=== PATIENT | male | born 1950 | race Caucasian/White ===

== ENCOUNTER → 2023-06-10 08:51 | Outpatient (REF) | payer MEDICARE, SELFPAY | LOC: RCS 08:51 | PROVIDERS: ATTENDING PHYSICIAN Internal Medicine Cardiovascular Disease; FAMILY PHYSICIAN Family Medicine | DX: R94.31 Abnormal electrocardiogram [ECG] [EKG] (principal); I10 Essential (primary) hypertension; E78.00 Pure hypercholesterolemia, unspecified; R00.2 Palpitations | CPT/HCPCS: 93017; 93350 ==

== ENCOUNTER → 2023-06-23 09:16 | Outpatient (REF) | payer MEDICARE, SELFPAY | LOC: DHCBS HW 09:16 | PROVIDERS: ATTENDING PHYSICIAN Internal Medicine Cardiovascular Disease; FAMILY PHYSICIAN Family Medicine | DX: I10 Essential (primary) hypertension (principal); Z86.73 Personal history of transient ischemic attack (TIA), and cerebral infarction without residual deficits; I34.0 Nonrheumatic mitral (valve) insufficiency | CPT/HCPCS: 93306 ==

== ENCOUNTER 2023-08-01 18:20 | Inpatient (IN) | payer MEDICARE, SELFPAY ==
[2023-08-01 14:00] VITALS: BP 163/95
[2023-08-01 14:47] LABS: % Basophils 0.4 % (0-2); % Eosinophils 0.8 % (0-6); % Immature Granulocytes 0.3 % (0-0.5); % Lymphocytes 3.2 % (20.5-51.1); % Monocytes 8.1 % (1.7-9.3); % Neutrophils 87.2 % (42.2-75.2); Absolute Basophils 0.1 10^3/uL (0-0.2); Absolute Eosinophils 0.1 10^3/uL (0-0.7); Absolute Immature Granulocytes 0.1 10^3/uL (0-0.05); Absolute Lymphocytes 0.5 10^3/uL (1.2-3.4); Absolute Monocytes 1.3 10^3/uL (0.1-0.6); Absolute Neutrophils 13.8 10^3/uL (1.4-6.5); Hematocrit 43.2 % (39.0-52.0); Hemoglobin 15.7 g/dL (13.0-18.0); Mean Corp Hgb Conc. 36.3 g/dL (33.0-37.0); Mean Corpuscular Hgb 34.7 pg (27.0-31.0); Mean Corpuscular Volume 95.4 fL (80.0-94.0); Mean Platelet Volume 9.3 fL (7.4-10.4); Nucleated Red Blood Cells % 0 % (-); Platelet Count 243 10^3/uL (130-400); Red Blood Cell Count 4.53 10^6/uL (4.70-6.10); Red Cell Dist. Width 11.6 % (11.5-14.5); White Blood Cell Count 15.9 10^3/uL (4.8-10.8)
[2023-08-01 15:02] LABS: ALT (SGPT) 24 U/L (0-50); AST (SGOT) 33 U/L (17-59); Albumin 4.4 g/dl (3.5-5.0); Alkaline Phosphatase 69 U/L (38-126); Blood Urea Nitrogen 17 mg/dl (9-20); Carbon Dioxide 29 mmol/L (22-30); Chloride 97 mmol/L (98-107); Glucose 118 mg/dl (70-99); Potassium 3.9 mmol/L (3.5-5.1); Sodium 137 mmol/L (135-145); Total Bilirubin 1.2 mg/dl (0.2-1.3); Total Protein 7.4 g/dl (6.3-8.2); eGFR > 60.00
--- NOTE | 2023-08-01 15:09 | ED.GENMED ---
History of Present Illness
General
Chief Complaint: Abdominal Pain
Source: patient
Exam Limitations: none
Time Seen by Provider: 08/01/23 15:03
Nursing documentation reviewed up to this point in time: agreed with
Travel History
Have you had any contact with someone who has COVID-19?: No
Do you have any symptoms of coronavirus? Fever > 100 degrees, chills, cough, shortness of breath, sore throat, loss of taste or smell, muscle aches, or headache?: No
History of Present Illness
History of Present Illness:
73 y/o M with h/o HTN, HLD, diverticulitis, prostate CA
here with abd pain that started yesterday morning. he had the pain that seemed to come and go, mid abdomen; he took 2 doculax at 1915 lat night and then he did have liquid stool 2100 vbut not much. today he feels more bloated and distended and
tok more doculax and now is nauseated and uncomfortable
pt drinks alcohol, wine, a few nights a week
no h/o SBO, no h/o pancreatitis
pt says he has not had fever, urinary symtpoms, vomiting, bloody or black stool
Past History
Past History
ED Past Medical History: HTN, Hypercholesterolemia, Other (diverticulitis), Other (prostate CA) and Other (TIA)
Social History
Alcohol: Occasional
Personal:
Living: with family
Employment: Employed
Review of Systems
Review of Systems
Allergies reviewed?: Yes
All Other Systems: Not applicable
Phy Exam
Physical Exam
Physical Exam:
GENERAL: Alert , in no apparent distress
EYE: pupils equal and reactive
NECK: Supple
ENT: o/p clr, mmm.
CARDIAC: Regular rate and rhythm
LUNGS: Clear breath sounds bilaterally, no acute respiratory distress, no wheezes/rales/rhonchi
ABDOMEN: Distended, minimally tender upper abdomen, hyperactive high-pitched bowel sounds, no r/g, no cvat,
NEUROLOGICAL: Alert and oriented, no focal neuro deficits
SKIN: Warm and dry, skin intact.
MUSCULOSKELETAL: No edema, well perfused. neg pradip's sign
PSYCH: Normal and appropriate interaction.
Course
Orders/Labs/Results
Orders:
Orders
08/01/23 14:15
CR Obstruct Series W/pa Chest Urgent
Reason For Exam: constipation
08/01/23 14:35
Amylase Urgent
Comment: ADD
Complete Blood Count/With Diff Urgent
Comprehensive Metabolic Panel Urgent
Glycohemoglobin (HgbA1c) Urgent
LDH Urgent
Comment: ADD
Lipase Urgent
Triglycerides Urgent
Comment: ADD ON
08/01/23 Dinner
NPO
Allow oral meds: No
Allow clear liquids: No
NPO with Ice Chips: No
08/01/23 15:26
CT Abd/pel W Iv And Oral Contr Urgent
Comment:
Reason For Exam: constiation, distension, nausea; elevated lipase
HYDROmorphone [Dilaudid] 0.5 mg IV NOW STA
Iohexol [Omnipaque] See Protocol PO NOW STA
Lactated Ringers [Lr] 1,000 ml IV BOLUS
Ondansetron Injectable [Zofran] 4 mg IV NOW STA
08/01/23 15:27
Add On- LAB Urgent
Tests Added?: ldh, amylase,
08/01/23 17:01
Admit/Transfer Patient As Directed
Co-Sign Provider:
Level of Care: Inpatient admission
Assign to:: Medical/Surgical
Physician / Group: stacia neil
Diagnosis: acute pancreatitis, poss ileus, htn urgency
Reason for Hospitalization: acute pancreatitis, poss ileus, htn urgency
Expected length of stay greater than two midnights?: Yes
ELOS- Estimated Length of Stay in days: 3
I certify the patient meets the requirements for IP care: Yes
Code Status As Directed
Resuscitation Status: Full Code
08/01/23 17:07
Pantoprazole [Protonix IV] 40 mg IV NOW STA
08/01/23 17:10
GASTROINTESTINAL CONSULT Routine
Consulting Provider: Justin Vaughan
Was physician already notified: Yes
Reason for consult: acute pancreatitis poss ileus
08/01/23 17:50
Add On- LAB Routine
Tests Added?: Hbg a1c, Triglyceride
08/01/23 18:30
0.9% Sodium Chloride 1000 ml [Nss] 1,000 ml IV 125 mls/hr
Bisacodyl [Dulcolax] 10 mg RECTAL [id number] PRN
Docusate W/Senna [Senokot-S] 1 tablet PO BIDPRN PRN
HYDROmorphone [Dilaudid] 0.5 mg IV Q4HPRN PRN
HYDROmorphone [Dilaudid] 1 mg IV Q3HPRN PRN
HydrALAZINE [Apresoline] 10 mg IV Q6HPRN PRN
Ondansetron Injectable [Zofran] 4 mg IV Q6HPRN PRN
Polyethylene Glycol Powder [Miralax] 17 grams PO DAILYPRN PRN
08/01/23 18:30
Activity As Directed
Activity Level: As Tolerated
Intake/ Output As Directed
Frequency: Per unit guidelines
Vital Signs As Directed
Frequency: Per unit guidelines
Weight As Directed
Frequency: Daily
DX Deep Vein Thrombosis Video Routine
08/01/23 21:00
Enoxaparin Sodium [Lovenox] 40 mg SC QPM
08/02/23 06:00
Cardiovascular Evaluation IN AM
Complete Blood Count/With Diff IN AM
Comprehensive Metabolic Panel IN AM
Lipase IN AM
08/02/23 08:00
Pantoprazole [Protonix IV] 40 mg IV DAILY
08/03/23 06:00
Complete Blood Count/With Diff IN AM
Comprehensive Metabolic Panel IN AM
Lipase IN AM
08/04/23 06:00
Complete Blood Count/With Diff IN AM
Comprehensive Metabolic Panel IN AM
Abnormal Lab Results
08/01/23
14:35
WBC 15.9 H 10^3/uL
(4.8-10.8)
RBC 4.53 L 10^6/uL
(4.70-6.10)
MCV 95.4 H fL
(80.0-94.0)
MCH 34.7 H pg
(27.0-31.0)
Abs Immat Gran (auto) 0.1 H 10^3/uL
(0-0.05)
Absolute Neuts (auto) 13.8 H 10^3/uL
(1.4-6.5)
Absolute Lymphs (auto) 0.5 L 10^3/uL
(1.2-3.4)
Absolute Monos (auto) 1.3 H 10^3/uL
(0.1-0.6)
Neutrophils % 87.2 H %
(42.2-75.2)
Lymphocytes % 3.2 L %
(20.5-51.1)
Chloride 97 L mmol/L
(98-107)
Glucose 118 H mg/dl
(70-99)
Amylase 964 H* U/L
(30-110)
Lipase > 4000 H* U/L
(23-300)
08/01/23 14:35
08/01/23 14:35
Vital Signs
Initial and Last Documented VS:
Initial Vital Signs
Temp Pulse Resp BP Pulse Ox
99.2 F 97 20 163/95 100
08/01/23 14:00 08/01/23 14:00 08/01/23 14:00 08/01/23 14:00 08/01/23 14:00
Last Documented Vital Signs
Temp Pulse Resp BP Pulse Ox
98.6 F 82 18 176/93 96
08/01/23 18:29 08/01/23 18:29 08/01/23 18:29 08/01/23 18:29 08/01/23 18:29
MDM/Problems Addressed
MDM/Problems Addressed:
73 y/o M with abd pain, nauesa, constipation feeling, not relieved with doculax; able to pass some gas but with bowel distention; mild tenderness and distension on exam; wbc 15, lipase >4000, normal LFTs,
pending CT but xray suspicious for ileus; no history of pancreatitis in the past
h/o alcohol use weekly, a few nights aweek, no h/o alcoholism;
Requires hospitalization, IV fluids, pain meds
08/01/2023 2109 PM
I noticed the patient's CT result was back after the patient was admitted and the hospitalist had placed the orders showing interstitial edematous pancreatitis and also suspicious findings of choledocholithiasis. I did notify GI attending
tamar who is aware, GI was already formally consulted
He said that the patient will likely need ERCP.
*Critical Care Note
Total Time (30-74mins, 75-104mins- exclusive of procedures): Not Applicable
ED Attending Note
-
Portions of this chart may have been created with voice recognition software.� Occasional wrong word or��sound alike� substitutions may have occurred due to the inherent limitations of voice recognition software.
Discharge Plan
Departure
Patient Disposition: Admit
Date of Disposition: 08/01/23
Time of Disposition: 16:32
Admit to: Med/Surg
Presentation/result/management discussed w/ accepting MD/DO: Hospitalist
Covid-19: Not Applicable
Discharge Problem:
Acute pancreatitis, Adynamic ileus
Interventions
Interventions:
*Risk Screen - Suicide Last Done: 08/01/23 15:13
*General Assessment Last Done: 08/01/23 15:14
*Neglect/Abuse Screening Last Done: 08/01/23 15:13
ED- Fall Risk Assessment Last Done: 08/01/23 18:20
*ED COVID-19 Vaccine History Last Done: 08/01/23 15:14
*Nursing Disposition Last Done: 08/01/23 18:20
DK-Aumhty-Wchzvzbhil Assessment Last Done: 08/01/23 15:14
Discharge Date and Time
Discharge Date/Time: 08/01/23 18:29
[2023-08-01 15:16] LABS: Lipase > 4000 U/L (23-300)
[2023-08-01 15:23] VITALS: BP 151/86
[2023-08-01] MEDS: DILAUDID 0.5 MG IV ×3 (15:34→23:44)
[2023-08-01] MEDS: OMNIPAQUE 50 ML PO (15:34)
[2023-08-01] MEDS: ZOFRAN 4 MG IV (15:34)
[2023-08-01] MEDS: LR 1000 IV (15:34)
[2023-08-01 15:45] LABS: Amylase 964 U/L (30-110); LDH 203 U/L (120-246)
[2023-08-01 16:34] VITALS: BP 163/108
--- NOTE | 2023-08-01 16:42 | HPS.HSE ---
Family Physician
-
Family Physician: Carlos King
Chief Complaint
-
Abdominal pain, nausea
History of Present Illness
73-year-old male complaining of mid abdominal pain that started yesterday morning with feeling of constipation, nausea. He reports taking 2 Dulcolax at 1915 last night followed by liquid stool at 2100. He reported feeling more distended and
bloated this morning and took more Dulcolax and now feels nauseated. He states he has a bowel movement daily with last bowel movement formed Wednesday then yesterday following do collect liquid. He reports he drinks white wine 1 glass twice a week.
Per biopsies noted to have acute pancreatitis and possible ileus per obstruction series in the ER. Patient denies weight loss, fever, chills, vomiting, diarrhea chest pain, palpitations, shortness of breath, cough, urinary symptoms
He has past medical history prostate cancer status post prostatectomy 1998, headaches, TIA, HTN, HLD, ex-smoker, diverticulitis, melanoma.
Medical History
Past Medical History
Past Medical History: Reports Other
Additional Past Medical History:
prostate cancer status post prostatectomy 1998
headaches
TIA
HTN
HLD,
ex-smoker
diverticulitis
melanoma.
Past Surgical History: Reports Other
Additional Past Surgical History:
Prostatectomy status post prostate cancer 1998
Right bicep tendon repair
Right inguinal hernia repair
Social History
Tobacco: Former Smoker
Alcohol: Other (Drinks 1 glass wine 2 days a week)
Drug: None
Personal:
Living: With Family ()
Employment: Retired
Family History
Family History: Other (Mother Alzheimer's father cardiac disease)
Allergies / Home Medications
Allergies reflects when Allergies were last updated in [facility].
Home Medications with original date entered in [facility]
Allergy/Medication List:
Allergies
Allergy/AdvReac Type Severity Reaction Status Date / Time
adhesive tape [Adhesive Tape] Allergy Rash Verified 08/01/23 14:00
Home Medications
amlodipine 5 mg tablet 5 mg PO DAILY 08/01/23
clopidogrel 75 mg tablet 75 mg PO HS 08/01/23
levothyroxine 75 mcg tablet 75 mcg PO DAILY 08/01/23
lisinopril 20 mg-hydrochlorothiazide 25 mg tablet 1 tab PO DAILY 08/01/23
metoprolol succinate 50 mg tablet,extended release 24 hr 50 mg PO HS 08/01/23
rosuvastatin 20 mg tablet 20 mg PO HS 08/01/23
Review of Systems
-
History Source: Patient and Family ()
A 12 point ROS was completed and negative except as noted: Yes
Constitutional: Denies Fever, Weight Loss or Chills
EENT: Denies Sore Throat or Runny Nose
Respiratory: Denies Cough or Trouble Breathing
Cardiac: Denies Chest Pain, Diaphoresis, Palpitations or Syncope
Abdomen/GI: Reports Abdominal Pain and Nausea; Denies Vomiting, Diarrhea, Constipated, Bloody Stools or Black Stools
: Denies Dysuria, Frequency, Flank Pain, Incontinence, Difficulty Voiding or Urgency
Musculoskeletal: Denies Joint Pain or Edema
Skin: Denies Itching or Rash
Neurological: Denies Dizzy, Headache or Weakness
Endocrine: Reports No Symptoms
Hematologic/Lymphatic: Reports No Symptoms
Psych: Reports Calm
Physical Exam
Vital Signs
Vital Signs
Temp Pulse Resp BP Pulse Ox
99.2 F 71 16 163/108 97
08/01/23 14:00 08/01/23 16:34 08/01/23 16:34 08/01/23 16:34 08/01/23 16:34
Physical Exam
General: Conversant and Pain; No Fever or Chills
HEENT: NormoCephalic, Anicteric, Moist mucous membranes, PERRLA, [place] Conjunctivae and No Ptosis
Respiratory: Clear; No Wheezes, Rales or Rhonchi
Cardiac: S1/S2 and Regular Rhythm; No Murmur, Rub, Gallop or Peripheral Edema
Breast: Deferred by me
GI: Soft, Normal Bowel Sounds, Distended (Diffuse tympany) and No Hepatosplenomegaly
Rectal: Deferred by Provider
Genito-urinary: Deferred by me
Musculoskeletal: No Clubbing, No Cyanosis and No Edema
Skin: Warm and Dry; No Rash or Jaundice
Neuro: AO x 3, No Motor Deficits, Nonfocal/grossly intact, Cranial Nerves Intact and No Sensory Deficits; No Slurred Speech, Facial Droop or Tremors
Psych: Calm
Laboratory Results
-
08/01/23 14:35
08/01/23 14:35
Laboratory Results
Total Bilirubin 1.2 mg/dl (0.2-1.3) 08/01/23 14:35
AST 33 U/L (17-59) 08/01/23 14:35
ALT 24 U/L (0-50) 08/01/23 14:35
Alkaline Phosphatase 69 U/L (38-126) 08/01/23 14:35
Lipase > 4000 U/L (23-300) H* 08/01/23 14:35
Data Reviewed
-
Diagnostic Radiology: Report Reviewed by me
Lab Data: Labs Reviewed by me
Impression/Plan
-
Impression/plan:
Admit to [facility]
#Acute pancreatitis concern for additional ileus
WBC 15.9 with left shift, 99.2 F, HR 71, 163/108
Amylase > 964, lipase> 4000 , L LFT's
-Drinks 1 glass of white wine 2 days a week(prior history of increased alcohol use)
-Npo
-Iv NSS
-Iv PPI
-IV Zofran
-IV Dilaudid as needed
-Consult GI
-Check CT abdomen pelvis
Obstruction series:
1. Mild air distention small loops of bowel throughout the mid abdomen and transverse colon could be secondary to adynamic ileus
2. No colonic obstruction
3. Large number surgical clips inferior pelvis consistent with previous prostatectomy and lymphadenectomy
4. 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
#Htn urgency
hold lisinopril/HCTZ, metoprolol succinate, amlodipine 5 mg daily
-IV hydralazine 10 mg every 6 hours as needed SBP>165
# TIA hx
Hold current Plavix 75 mg daily, Crestor 20 mg at bedtime
#Hypothyroidism
-Hold current levothyroxine 75 mcg daily
#HLD
-Lipid profile
Hold Crestor 20 mg at bedtime
#Prostate cancer status post prostatectomy 1998
Other PMH:
ex-smoker
Diverticulitis hx
Melanoma hx skin
DVT prophylaxis
Subcu Lovenox
Full code
[2023-08-01] MEDS: PROTONIX IV 40 MG IV (17:24)
[2023-08-01 17:27] VITALS: BP 139/80
--- NOTE | 2023-08-01 17:45 | W.PN.UPDATE ---
Update Note
Progress Note Update
I saw and examined the patient.
The CLOTH SHRINKING MACHINE OPERATOR's note was reviewed and I agree with the note.
Patient is a 79-year-old male with past medical history of essential hypertension, hypothyroidism, hyperlipidemia, episodic alcohol use, history of transient ischemic attack, mild MR, history of obstructive sleep apnea, history of prostate cancer
status open resection, lumbar radiculopathy history of foot drop came to ER with new onset of abdominal pain and nausea. Patient was feeling constipated for last 2 3 days and had a dose of Dulcolax with which patient had some bowel movement. In
the morning patient noted to having new bloating and abdominal discomfort generalized allover with no radiation. Patient noted to having abdominal distention, not able to pass any gas. Patient with history of hernia surgery although no history of
bowel obstructions. Denies history of pancreatitis. Patient drinks 1 to 2 glass of wine 1-2 times a week
HEENT: No pallor, cyanosis, or jaundice. Throat clear.
NECK: Supple. No JVD.
RESPIRATORY: Lungs clear to auscultation.
CVS: S1, S2 normal. RRR. No murmur, rub or gallop.
ABDOMEN: Soft, mild diffuse tenderness, minimal distention, decreased bowel
EXTREMITIES: No peripheral cyanosis or edema.
MEAT BLENDER: AOx3. No focal deficits.
Acute pancreatitis
-New onset abdominal pain nausea.
-Lipase elevated greater than 4000, amylase > 964
-CT abdomen pelvis pending
-Advised alcohol abstinence
-Check A1c/triglyceride/Abdominal ultrasound
-Maintain n.p.o./IV fluid/pain medication
-GI involved for further evaluation
Suspecting ileus
-Abdominal x-ray showing dilated bowel loops
-CT abdomen pelvis result pending, rule out obstruction
-Patient will be n.p.o. nonetheless
-Possible NG tube placement for gastric decompression if have extensive nausea and vomiting
Hypertensive urgency
-Maintain on as needed hydralazine for systolic pressure > 160
DVT PPX -scd
Full code
[2023-08-01 18:23] LABS: Triglycerides 77 mg/dl (10-149)
[2023-08-01 18:29] VITALS: BP 176/93
[2023-08-01 19:00] VITALS: BMI 24.0
--- NOTE | 2023-08-01 19:24 | PTCARENOTE ---
pt arrived to room 1836 with . 10 pain. bruise to Right abdomen. NPO. bed low call wilson in reach
[2023-08-01] MEDS: NSS 1000 IV (19:37)
[2023-08-01] MEDS: LOVENOX 40 MG SC (20:31)
[2023-08-01 23:00] VITALS: BP 162/86
[2023-08-02] MEDS: NSS 1000 IV ×2 (03:05→12:10)
[2023-08-02] MEDS: DILAUDID 0.5 MG IV ×4 (04:53→22:07)
[2023-08-02 06:00] VITALS: BMI 23.9
[2023-08-02 06:15] LABS: % Basophils 0.5 % (0-2); % Eosinophils 1.7 % (0-6); % Immature Granulocytes 0.6 % (0-0.5); % Lymphocytes 4.9 % (20.5-51.1); % Monocytes 11.1 % (1.7-9.3); % Neutrophils 81.2 % (42.2-75.2); Absolute Basophils 0.1 10^3/uL (0-0.2); Absolute Eosinophils 0.2 10^3/uL (0-0.7); Absolute Immature Granulocytes 0.1 10^3/uL (0-0.05); Absolute Lymphocytes 0.6 10^3/uL (1.2-3.4); Absolute Monocytes 1.3 10^3/uL (0.1-0.6); Absolute Neutrophils 9.8 10^3/uL (1.4-6.5); Hematocrit 38.2 % (39.0-52.0); Hemoglobin 13.1 g/dL (13.0-18.0); Mean Corp Hgb Conc. 34.3 g/dL (33.0-37.0); Mean Corpuscular Hgb 34.4 pg (27.0-31.0); Mean Corpuscular Volume 100.3 fL (80.0-94.0); Mean Platelet Volume 10.1 fL (7.4-10.4); Nucleated Red Blood Cells % 0 % (-); Platelet Count 193 10^3/uL (130-400); Red Blood Cell Count 3.81 10^6/uL (4.70-6.10); Red Cell Dist. Width 11.6 % (11.5-14.5)
--- NOTE | 2023-08-02 06:15 | PTCARENOTE ---
PT with intermittent pain t/l the night. PRN pain medication administered as ordered. IVF infusing as ordered. Pt resting comfortably. Will continue to monitor.
--- NOTE | 2023-08-02 06:36 | CON.GI ---
Consultation
-
Date/Time Consultation Performed: 08/02/2023
Performing Provider: Praveen Vaughan MD
Reason for Consultation: abdominal pain, pancreatitis
Medical History
Chief Complaint / HPI
Chief Complaint: abdominal pain
History of Present Illness:
The patient is a 73-year-old male with past medical history as noted with abdominal pain. Symptoms started on Wednesday morning, with abdominal bloating, lower abdominal discomfort, felt constipated. He took a Dulcolax with bowel movement which was
mostly liquid, and nonbloody, and had some improvement. History his pain was more significant which prompted him to go to the emergency room. In the ER his CT scan showed changes consistent with ileus, as well as possible CBD stone with changes
consistent with pancreatitis. His lipase was greater than 4000 though LFTs were normal. He is never had pain like this before. He does drink several times during the week. He denies any fever, chills, melena. His last colonoscopy was about 5
weeks ago at [facility] with small polyp though otherwise unremarkable. He does take aspirin and Plavix for TIA, last dose on July 30.
Past Medical History
Past Medical History: Other (prostate cancer status post prostatectomy 1998 headaches TIA HTN HLD, ex-smoker diverticulitis melanoma. Mild MR, obstructive sleep apnea, lumbar radiculopathy)
Past Surgical History: Other (Prostatectomy status post prostate cancer 1998 Right bicep tendon repair Right inguinal hernia repair)
Social History
Tobacco: Former Smoker
Alcohol: Occasional
Family History
Family History: Reviewed & Not Pertinent
Allergies / Home Medications
Allergy/AdvReac Type Severity Reaction Status Date / Time
adhesive tape [Adhesive Tape] Allergy Rash Verified 08/01/23 14:00
�Medication �Instructions �Recorded
amlodipine 5 mg tablet 5 mg PO DAILY Blood Pressure 08/01/23
clopidogrel 75 mg tablet 75 mg PO HS Blood Clot 08/01/23
Prevention/Tx
levothyroxine 75 mcg tablet 75 mcg PO DAILY Thyroid 08/01/23
lisinopril 20 1 tab PO DAILY Blood Pressure 08/01/23
mg-hydrochlorothiazide 25 mg tablet
metoprolol succinate 50 mg 50 mg PO HS Blood Pressure 08/01/23
tablet,extended release 24 hr
rosuvastatin 20 mg tablet 20 mg PO HS High Cholesterol 08/01/23
Review of Systems
-
All other systems: A 12 pt ROS was Negative except as stated above in HPI
Vital Signs
Temp Pulse Resp BP Pulse Ox
98.5 F 95 18 162/86 96
08/01/23 23:00 08/01/23 23:00 08/01/23 23:00 08/01/23 23:00 08/02/23 00:30
Physical Exam
Exam
General: NAD
HEENT: MMM, anicteric, no lymphadenopathy
Heart: Regular, no murmurs
Lungs: CTA bilaterally
Abdomen: Few normal bowel sounds, moderately distended though soft, mild diffuse tenderness, no rebound or guarding, no masses, bruits or ascites
Extremeties: no edema
Skin: no rashes
Results
WBC 12.0 10^3/uL (4.8-10.8) H 08/02/23 04:38
Hgb 13.1 g/dL (13.0-18.0) 08/02/23 04:38
Hct 38.2 % (39.0-52.0) L 08/02/23 04:38
MCV 100.3 fL (80.0-94.0) H 08/02/23 04:38
Plt Count 193 10^3/uL (130-400) D 08/02/23 04:38
Absolute Neuts (auto) 9.8 10^3/uL (1.4-6.5) H 08/02/23 04:38
Sodium 137 mmol/L (135-145) 08/01/23 14:35
Potassium 3.9 mmol/L (3.5-5.1) 08/01/23 14:35
Chloride 97 mmol/L (98-107) L 08/01/23 14:35
Carbon Dioxide 29 mmol/L (22-30) 08/01/23 14:35
BUN 17 mg/dl (9-20) 08/01/23 14:35
Creatinine 0.9 mg/dL (0.7-1.3) 08/01/23 14:35
Calcium 10.0 mg/dl (8.4-10.2) 08/01/23 14:35
Total Bilirubin 1.2 mg/dl (0.2-1.3) 08/01/23 14:35
AST 33 U/L (17-59) 08/01/23 14:35
ALT 24 U/L (0-50) 08/01/23 14:35
Alkaline Phosphatase 69 U/L (38-126) 08/01/23 14:35
Amylase 964 U/L (30-110) H* 08/01/23 14:35
Lipase > 4000 U/L (23-300) H* 08/01/23 14:35
Diagnostic Image Results:
CT:
IMPRESSION:
1. ACUTE INTERSTITIAL EDEMATOUS PANCREATITIS.
2. Mild intrahepatic and extrahepatic biliary dilatation with a suspected 3.3 mm obstructing calculus in the distal common bile duct.
3. Mild diffuse hepatic steatosis.
4. Moderate-sized paraesophageal hiatal hernia.
5. Mild small bowel distention and proximal colonic distention most consistent with an ADYNAMIC ILEUS.
6. Severe diverticulosis in the sigmoid colon.
7. Previous prostatectomy and pelvic lymphadenectomy.
8. Severe discogenic degenerative disease in the lumbar spine.
Prior GI Procedures:
EGD:
Colonoscopy:
Assessment / Plan
-
1. Abdominal pain: With symptoms and exam more consistent with ileus which is noted on CT scan. Interestingly he did not have any pancreatitis type symptoms, and his LFTs are normal making biliary pancreatitis less likely despite his CT scan and
lipase. The radiopacity noted on CT scan is not clear, could represent a PD stone, and could have chronic underlying pancreatitis as he does drink significantly, could have ileus related to pancreatitis though again is that he has not had
significant biliary colic and that his LFTs are normal. At this point we will continue IV fluids, supportive care, bowel rest. Will check MRI with and without contrast with MRCP for further clarification.
-
-
Thank you for consultation and allowing me to participate in the patient's care. Please call the suction dredge dumping supervisor GI physician during the after hours with any questions or concerns.
[2023-08-02 06:55] VITALS: BP 150/86
[2023-08-02 06:59] LABS: ALT (SGPT) 16 U/L (0-50); AST (SGOT) 25 U/L (17-59); Albumin 3.2 g/dl (3.5-5.0); Alkaline Phosphatase 54 U/L (38-126); Blood Urea Nitrogen 12 mg/dl (9-20); Calcium 8.7 mg/dl (8.4-10.2); Carbon Dioxide 27 mmol/L (22-30); Chloride 99 mmol/L (98-107); Estimated Creatinine Clearance 72 ml/min; Glucose 83 mg/dl (70-99); HDL Cholesterol 67 mg/dl; LDL Cholesterol, Calculated 44 mg/dl; Lipase 561 U/L (23-300); Potassium 3.3 mmol/L (3.5-5.1); Sodium 135 mmol/L (135-145); Total Bilirubin 0.8 mg/dl (0.2-1.3); Total Cholesterol 121 mg/dl (50-199); Total Protein 5.7 g/dl (6.3-8.2); Triglyceride 53 mg/dl (10-149); Very Low Density Lipoprotein 10 mg/dl (0-30); eGFR > 60.00
[2023-08-02] MEDS: NSS (PRESERVATIVE FREE) 10 ML IV (09:10)
[2023-08-02] MEDS: PROTONIX IV 40 MG IV (09:10)
--- NOTE | 2023-08-02 09:49 | CM ---
Patient seen bedside.
IA completed.
Patient lives in a 2 story home with spouse.
No difficulties with steps.
patient drives, retired.
Patient does not use assistive devices.
Independent prior to admission.
PCP: Dr King
Pharmacy: [facility]
Plan: home no needs anticiapted.
--- NOTE | 2023-08-02 11:14 | W.PN.HOSP.TC ---
Today's Communication/Plan
-
MRI/MRCP
IVF
Meds OK
Assessment / Plan
Assessment / Plan
73-year-old female admitted because of abdominal pain and nausea.
CT scan of the abdomen and pelvis-mild air distention of the small loops of bowel throughout mid abdomen and transverse colon-likely secondary to adynamic ileus. No colonic obstruction. Large number of surgical clips inferior pelvis consistent
with previous prostatectomy and lymphadenectomy. 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
CVS: S1-S2 normal
Chest: CTA B/L
Abdomen: Soft,distended, BS sluggish
Extremities: No edema, normal pulses
[employer]: Non focal exam
# Acute pancreatitis possible ileus
Continue n.p.o.
Lipase improving
IV fluids to be continued
MRI/MRCP today
GI evaluation appreciated
# Hypokalemia-replace
#Hypomagnesemia- Replace
# Hypertensive urgency
Lisinopril/HCTZ, metoprolol, amlodipine at home
As needed hydralazine IV
Hold HCTZ
# Hypothyroidism-continue Synthroid
# Hyperlipidemia- Crestor
# History of TIA-continue Plavix and statin
# History of prostate cancer with prostatectomy in 1998
# Diverticulosis
# History of melanoma of the skin
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
# Ex-smoker
# Alcohol use reportedly twice a week-thiamine
Watch for withdrawal
# DVT prophylaxis-Lovenox
#Full CODE
D/W RN
D/W at bed side
Anticipated Discharge: Within 24 hours
Subjective/Interval History
-
Date of Service: August 02, 2023
Objective Data
-
Labs:
Laboratory Results
08/02/23
04:38
WBC 12.0 H
Hgb 13.1
Hct 38.2 L
Plt Count 193 D
Sodium 135
Potassium 3.3 L
Chloride 99
Carbon Dioxide 27
BUN 12
Creatinine 0.9
Glucose 83
Calcium 8.7
Total Bilirubin 0.8
AST 25
ALT 16
Alkaline Phosphatase 54
Vital Signs:
Vital Signs
Temp Pulse Resp BP Pulse Ox
98.1 F 88 19 150/86 94
08/02/23 06:55 08/02/23 06:55 08/02/23 06:55 08/02/23 06:55 08/02/23 06:55
I&O
08/01/23 08/02/23 08/03/23
06:59 06:59 06:59
Intake Total 1500 / 1500
Balance 1500 / 1500
[2023-08-02 12:01] LABS: Magnesium 1.4 mg/dl (1.6-2.3)
[2023-08-02] MEDS: KCL 160 MEQ IV (12:07)
[2023-08-02] MEDS: THIAMINE INJECTION 200 MG IV (12:08)
[2023-08-02 12:10] LABS: Glycohemoglobin (HgbA1c) 5.4 % (4.0-5.6)
[2023-08-02] MEDS: ZESTRIL 20 MG PO (12:20)
[2023-08-02] MEDS: NORVASC 5 MG PO (12:20)
[2023-08-02] MEDS: SYNTHROID 75 MCG PO (12:20)
[2023-08-02] MEDS: ATIVAN 0.5 MG IV (13:55)
[2023-08-02] MEDS: NSS (PRESERVATIVE FREE) 0.25 ML IV (13:56)
[2023-08-02 16:20] VITALS: BP 161/87
[2023-08-02] MEDS: LOVENOX 40 MG SC (17:32)
[2023-08-02] MEDS: DILAUDID 1 MG IV (18:22)
[2023-08-02] MEDS: TOPROL XL 50 MG PO (20:40)
[2023-08-02] MEDS: PLAVIX 75 MG PO (20:40)
[2023-08-02] MEDS: MAGNESIUM SULFATE 50 IV (20:40)
[2023-08-02] MEDS: CRESTOR 20 MG PO (20:40)
[2023-08-02 23:30] VITALS: BP 130/71
[2023-08-03] MEDS: NSS IV ×3 (01:51→13:16)
[2023-08-03] MEDS: NSS 1000 IV ×3 (01:52→20:12)
[2023-08-03] MEDS: SYNTHROID 75 MCG PO (05:53)
[2023-08-03 06:00] VITALS: BMI 22.8
[2023-08-03 06:34] LABS: % Basophils 0.8 % (0-2); % Immature Granulocytes 0.5 % (0-0.5); % Lymphocytes 6.2 % (20.5-51.1); % Monocytes 11.8 % (1.7-9.3); % Neutrophils 76.7 % (42.2-75.2); Absolute Basophils 0.1 10^3/uL (0-0.2); Absolute Eosinophils 0.4 10^3/uL (0-0.7); Absolute Immature Granulocytes 0.1 10^3/uL (0-0.05); Absolute Lymphocytes 0.6 10^3/uL (1.2-3.4); Absolute Monocytes 1.1 10^3/uL (0.1-0.6); Absolute Neutrophils 7.3 10^3/uL (1.4-6.5); Hematocrit 36.5 % (39.0-52.0); Hemoglobin 12.6 g/dL (13.0-18.0); Mean Corp Hgb Conc. 34.5 g/dL (33.0-37.0); Mean Corpuscular Hgb 34.4 pg (27.0-31.0); Mean Corpuscular Volume 99.7 fL (80.0-94.0); Mean Platelet Volume 9.9 fL (7.4-10.4); Nucleated Red Blood Cells % 0 % (-); Platelet Count 199 10^3/uL (130-400); Red Blood Cell Count 3.66 10^6/uL (4.70-6.10); Red Cell Dist. Width 11.5 % (11.5-14.5); White Blood Cell Count 9.5 10^3/uL (4.8-10.8)
[2023-08-03 07:02] LABS: ALT (SGPT) 13 U/L (0-50); AST (SGOT) 23 U/L (17-59); Alkaline Phosphatase 52 U/L (38-126); Blood Urea Nitrogen 12 mg/dl (9-20); Calcium 8.6 mg/dl (8.4-10.2); Carbon Dioxide 25 mmol/L (22-30); Chloride 104 mmol/L (98-107); Estimated Creatinine Clearance 81 ml/min; Glucose 62 mg/dl (70-99); Lipase 200 U/L (23-300); Potassium 3.8 mmol/L (3.5-5.1); Sodium 138 mmol/L (135-145); Total Bilirubin 0.7 mg/dl (0.2-1.3); Total Protein 5.5 g/dl (6.3-8.2); eGFR > 60.00
[2023-08-03 07:53] VITALS: BP 144/78
[2023-08-03] MEDS: PROTONIX IV 40 MG IV (09:03)
[2023-08-03] MEDS: NORVASC 5 MG PO (09:04)
[2023-08-03] MEDS: NSS (PRESERVATIVE FREE) 10 ML IV (09:04)
[2023-08-03] MEDS: ZESTRIL 20 MG PO (09:04)
[2023-08-03] MEDS: THIAMINE INJECTION 200 MG IV (09:06)
--- NOTE | 2023-08-03 09:23 | W.PN.GI.CBS2 ---
Today's Communication / Plan
-
clear liquids
pancreatic enzymes
Assessment / Plan
-
Pt with a hx of ileus, chronic pancreatitis with superimposed mild acute pancreatitis. Initial lipase of >4,000 now normal. Less pain. Normal LFTs. MRI done w/o choledocholithiasis confirms acute on chronic pancreatitis which clinically is
improving.
1. clear liquids
2. PPI
3. pancreatic enzymes: loose stool may be secondary to pancreatic insufficiency.
4. d/w pt to minimize pain meds if possible.. A
Subjective
Subjective
Date of Service: August 03, 2023
Pt with less pain, no vomiting. still asking for pain meds
some loose stool
Objective
Data Reviewed
Laboratory Data:
Laboratory Results
08/03/23 05:30
08/03/23 05:30
Laboratory Results
Magnesium 1.4 mg/dl (1.6-2.3) L 08/02/23 04:38
Total Bilirubin 0.7 mg/dl (0.2-1.3) 08/03/23 05:30
AST 23 U/L (17-59) 08/03/23 05:30
ALT 13 U/L (0-50) 08/03/23 05:30
Alkaline Phosphatase 52 U/L (38-126) 08/03/23 05:30
Amylase 964 U/L (30-110) H* 08/01/23 14:35
Lipase 200 U/L (23-300) 08/03/23 05:30
Vital Signs and I&O:
Vital Signs
Temp Pulse Resp BP Pulse Ox
97.0 F 81 18 144/78 96
08/03/23 07:53 08/03/23 07:53 08/03/23 07:53 08/03/23 07:53 08/03/23 07:53
I&O
08/02/23 08/03/23 08/04/23
06:59 06:59 06:59
Intake Total 1500 / 1500 1889
Balance 1500 / 1500 1889
Physical Exam
Physical Exam
Cardiology: S1 and S2
GI: Soft, Distended (mildly) and Tender (mild tenderness)
Extremities: Warm
--- NOTE | 2023-08-03 11:52 | W.PN.HOSP.TC ---
Today's Communication/Plan
-
Clears
Had a BM
Assessment / Plan
Assessment / Plan
73-year-old female admitted because of abdominal pain and nausea.
CT scan of the abdomen and pelvis-mild air distention of the small loops of bowel throughout mid abdomen and transverse colon-likely secondary to adynamic ileus. No colonic obstruction. Large number of surgical clips inferior pelvis consistent
with previous prostatectomy and lymphadenectomy. 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
Pain much better. Had a BM
MRI-ACUTE INTERSTITIAL EDEMATOUS PANCREATITIS (superimposed upon chronic pancreatitis).Mild extrahepatic biliary dilatation without evidence for choledocholithiasis.No evidence for cholelithiasis or acute cholecystitis.Mild
hepatomegaly.Moderate-sized paraesophageal hiatal hernia.Mild to moderate distention of the proximal colon most suggestive of an adynamic ileus.Mild cardiomegaly.Severe discogenic degenerative disease in the lumbar spine.
CVS: S1-S2 normal
Chest: CTA B/L
Abdomen: Soft,distended, BS appreciated
Extremities: No edema, normal pulses
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
# Acute pancreatitis possible ileus
Clears
Lipase normalized.
IV fluids to be continued
GI following
MRI no Stones
# Hypokalemia-replaced
#Hypomagnesemia- Replaced
# Hypertensive urgency
Lisinopril/HCTZ, metoprolol, amlodipine at home
As needed hydralazine IV
Hold HCTZ
# Hypothyroidism-continue Synthroid
# Hyperlipidemia- Crestor
# History of TIA-continue Plavix and statin
# History of prostate cancer with prostatectomy in 1998
# Diverticulosis
# History of melanoma of the skin
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
# Ex-smoker
# Alcohol use reportedly twice a week-thiamine
Watch for withdrawal
# DVT prophylaxis-Lovenox
#Full CODE
D/W RN
D/W at bed side
Anticipated Discharge: Within 24 hours
Subjective/Interval History
-
Date of Service: August 03, 2023
Objective Data
-
Labs:
Laboratory Results
08/03/23
05:30
WBC 9.5
Hgb 12.6 L
Hct 36.5 L
Plt Count 199
Sodium 138
Potassium 3.8
Chloride 104
Carbon Dioxide 25
BUN 12
Creatinine 0.8
Glucose 62 L
Calcium 8.6
Total Bilirubin 0.7
AST 23
ALT 13
Alkaline Phosphatase 52
Vital Signs:
Vital Signs
Temp Pulse Resp BP Pulse Ox
97.0 F 81 18 144/78 96
08/03/23 07:53 08/03/23 07:53 08/03/23 07:53 08/03/23 07:53 08/03/23 07:53
I&O
08/02/23 08/03/23 08/04/23
06:59 06:59 06:59
Intake Total 1500 / 1500 1889
Balance 1500 / 1500 1889
[2023-08-03 12:51] LABS: Magnesium 1.9 mg/dl (1.6-2.3)
[2023-08-03] MEDS: ZENPEP DELAYED RELEASE CAPSULE 1 CAPSULE PO ×2 (13:04→17:38)
[2023-08-03 15:20] VITALS: BP 146/85
[2023-08-03] MEDS: LOVENOX 40 MG SC (17:38)
[2023-08-03] MEDS: TOPROL XL 50 MG PO (22:13)
[2023-08-03] MEDS: PLAVIX 75 MG PO (22:13)
[2023-08-03] MEDS: CRESTOR 20 MG PO (22:13)
[2023-08-03 23:34] VITALS: BP 126/72
[2023-08-04 05:23] VITALS: BMI 24.5
[2023-08-04] MEDS: SYNTHROID 75 MCG PO (05:58)
[2023-08-04 07:01] LABS: ALT (SGPT) 13 U/L (0-50); AST (SGOT) 24 U/L (17-59); Albumin 2.8 g/dl (3.5-5.0); Alkaline Phosphatase 47 U/L (38-126); Blood Urea Nitrogen 8 mg/dl (9-20); Calcium 8.5 mg/dl (8.4-10.2); Carbon Dioxide 27 mmol/L (22-30); Chloride 104 mmol/L (98-107); Estimated Creatinine Clearance 81 ml/min; Glucose 85 mg/dl (70-99); Magnesium 1.6 mg/dl (1.6-2.3); Potassium 3.8 mmol/L (3.5-5.1); Sodium 138 mmol/L (135-145); Total Bilirubin 0.5 mg/dl (0.2-1.3); Total Protein 5.2 g/dl (6.3-8.2); eGFR > 60.00
[2023-08-04 07:40] VITALS: BP 142/79
--- NOTE | 2023-08-04 08:30 | W.PN.GI.CBS2 ---
Today's Communication / Plan
-
low fat diet
Assessment / Plan
-
Pt with a hx of ileus, chronic pancreatitis with superimposed mild acute pancreatitis. Initial lipase of >4,000 now normal. Less pain. Normal LFTs. MRI done w/o choledocholithiasis confirms acute on chronic pancreatitis which appears resolved.
1. low fat diet
2. PPI
3. pancreatic enzymes: loose stool may be secondary to pancreatic insufficiency.
4. will call with outpatient f/u to f/u chronic pancreatitis
will sign off call with questions
Subjective
Subjective
Date of Service: August 04, 2023
Pt with no pain, feels better, took liquids with no issue. Did start pancreatic enzymes
Objective
Data Reviewed
Laboratory Data:
Laboratory Results
08/03/23 05:30
08/04/23 05:48
Laboratory Results
Magnesium 1.6 mg/dl (1.6-2.3) 08/04/23 05:48
Total Bilirubin 0.5 mg/dl (0.2-1.3) 08/04/23 05:48
AST 24 U/L (17-59) 08/04/23 05:48
ALT 13 U/L (0-50) 08/04/23 05:48
Alkaline Phosphatase 47 U/L (38-126) 08/04/23 05:48
Amylase 964 U/L (30-110) H* 08/01/23 14:35
Lipase 200 U/L (23-300) 08/03/23 05:30
Vital Signs and I&O:
Vital Signs
Temp Pulse Resp BP Pulse Ox
98.2 F 73 18 142/79 95
08/04/23 07:40 08/04/23 07:40 08/04/23 07:40 08/04/23 07:40 08/04/23 07:40
I&O
08/03/23 08/04/23 08/05/23
06:59 06:59 06:59
Intake Total 1889 / 3779
Balance 1889
Physical Exam
Physical Exam
GI: Soft, Non Distended and Non Tender
[2023-08-04] MEDS: NORVASC 5 MG PO (09:22)
[2023-08-04] MEDS: THIAMINE INJECTION 200 MG IV (09:22)
[2023-08-04] MEDS: ZESTRIL 20 MG PO (09:22)
[2023-08-04] MEDS: ZENPEP DELAYED RELEASE CAPSULE 1 CAPSULE PO ×2 (09:22→12:00)
[2023-08-04] MEDS: NSS (PRESERVATIVE FREE) 10 ML IV (09:23)
[2023-08-04] MEDS: PROTONIX IV 40 MG IV (09:23)
--- NOTE | 2023-08-04 10:22 | W.PN.HOSP.TC ---
Today's Communication/Plan
-
Discharge if tolerating diet.
Assessment / Plan
Assessment / Plan
73-year-old female admitted because of abdominal pain and nausea.
CT scan of the abdomen and pelvis-mild air distention of the small loops of bowel throughout mid abdomen and transverse colon-likely secondary to adynamic ileus. No colonic obstruction. Large number of surgical clips inferior pelvis consistent
with previous prostatectomy and lymphadenectomy. 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
Pain much better. Had a BM
MRI-ACUTE INTERSTITIAL EDEMATOUS PANCREATITIS (superimposed upon chronic pancreatitis).Mild extrahepatic biliary dilatation without evidence for choledocholithiasis.No evidence for cholelithiasis or acute cholecystitis.Mild
hepatomegaly.Moderate-sized paraesophageal hiatal hernia.Mild to moderate distention of the proximal colon most suggestive of an adynamic ileus.Mild cardiomegaly.Severe discogenic degenerative disease in the lumbar spine.
CVS: S1-S2 normal
Chest: CTA B/L
Abdomen: Soft,distended, BS appreciated
Extremities: No edema, normal pulses
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
# Acute pancreatitis possible ileus
Tolerating diet. Having bowel movements.
Diet advanced to low-fat
Lipase normalized.
MRI no Stones pancreatic enzymes were
GI
Patient has feeling of early satiety I recommended that he get an endoscopy as outpatient. I will provide GI's number.
# Hypokalemia-replaced
#Hypomagnesemia- Replaced
# Hypertensive urgency
Lisinopril/HCTZ, metoprolol, amlodipine at home
As needed hydralazine IV
Restart HCTZ at discharge
# Hypothyroidism-continue Synthroid
# Hyperlipidemia- Crestor
# History of TIA-continue Plavix and statin
# History of prostate cancer with prostatectomy in 1998
# Diverticulosis
# History of melanoma of the skin
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
# Ex-smoker
# Alcohol use reportedly twice a week-thiamine
No signs of withdrawal
# DVT prophylaxis-Lovenox
#Full CODE
D/W RN
D/W at bed side
D/W case management
Follow up care discussed
All questions answered
More than 30 minutes spent in discharge including
Final examination of the patient
Summarizing hospital stay
Instructions for continuing care to all relevant caregivers
Preparation of discharge records, prescriptions, and referral forms
Total time spent (in minutes): 34 min
Anticipated Discharge: Today
Subjective/Interval History
-
Date of Service: August 04, 2023
Objective Data
-
Labs:
Laboratory Results
08/04/23
05:48
Sodium 138
Potassium 3.8
Chloride 104
Carbon Dioxide 27
BUN 8 L
Creatinine 0.8
Glucose 85
Calcium 8.5
Total Bilirubin 0.5
AST 24
ALT 13
Alkaline Phosphatase 47
Vital Signs:
Vital Signs
Temp Pulse Resp BP Pulse Ox
98.2 F 73 18 142/79 95
08/04/23 07:40 08/04/23 09:22 08/04/23 07:40 08/04/23 09:22 08/04/23 07:40
I&O
08/03/23 08/04/23 08/05/23
06:59 06:59 06:59
Intake Total 1889 3780 / 3780
Balance 1889 3780 / 3780
--- NOTE | 2023-08-04 10:31 | W.DS.TRANS ---
Addendum entered and electronically signed by Mauricio Cisneros MD 08/04/23 15:34:
Dictation- [id number]
Original Note:
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
-
Discharge Instructions:
Discharge Diagnosis/Procedures Pancreatitis, hiatal hernia ,lumbar discogenic
degenerative disease, low potassium and
magnesium, hypertension, hypothyroidism, high
cholesterol, history of TIA, history of prostate
cancer, diverticulosis, history of melanoma
Diet Low Fat
Activity As tolerated
Driving Restrictions As prior to admission
Instructions:
Stand-Alone Forms:
Changes to Home Medications: Yes
Discharge Medications:
DC Medications w/original date entered in [employer]
amlodipine 5 mg tablet 5 mg PO DAILY Blood Pressure 08/01/23
clopidogrel 75 mg tablet 75 mg PO HS Blood Clot Prevention/Tx 08/01/23
levothyroxine 75 mcg tablet 75 mcg PO DAILY Thyroid 08/01/23
lisinopril 20 mg-hydrochlorothiazide 25 mg tablet 1 tab PO DAILY Blood Pressure 08/01/23
metoprolol succinate 50 mg tablet,extended release 24 hr 50 mg PO HS Blood Pressure 08/01/23
rosuvastatin 20 mg tablet 20 mg PO HS High Cholesterol 08/01/23
zbcjjd-acvzxcyw-sotymit 10,000-32,000-42,000 unit capsule,delayed rel (Zenpep) 1 cap PO MEALS Gastrointestinal issue #90 caps 08/04/23
magnesium oxide 500 mg PO DAILY Electrolyte Repletion #0 tabs 08/04/23
pantoprazole 40 mg tablet,delayed release (Protonix) 40 mg PO DAILY Gastrointestinal issue #60 tabs 08/04/23
Home Medication Changes
new
emfrgk-telbjcac-rjtbrht 10,000-32,000-42,000 unit capsule,delayed rel (Zenpep) 1 cap PO MEALS Gastrointestinal issue #90 caps 08/04/23
magnesium oxide 500 mg PO DAILY Electrolyte Repletion #0 tabs 08/04/23
pantoprazole 40 mg tablet,delayed release (Protonix) 40 mg PO DAILY Gastrointestinal issue #60 tabs 08/04/23
Pending Results: No
[2023-08-04] MEDS: MAGNESIUM SULFATE 102 GRAMS IV (11:04)
== END 2023-08-04 16:35 | disposition home or self-care (01) | DRG 439 ==
LOC: 2 SOUTH 18:20
PROVIDERS: Clinical Nurse Specialist Family Health; Emergency Medicine; ADMITTING PHYSICIAN Hospitalist; ATTENDING PHYSICIAN Hospitalist; CONSULT PHYSICIAN Internal Medicine Gastroenterology; EMERGENCY PHYSICIAN Emergency Medicine; FAMILY PHYSICIAN Family Medicine
DX: K85.80 Other acute pancreatitis without necrosis or infection (principal); K56.0 Paralytic ileus; K44.9 Diaphragmatic hernia without obstruction or gangrene; I10 Essential (primary) hypertension; E03.9 Hypothyroidism, unspecified; E78.00 Pure hypercholesterolemia, unspecified; I16.0 Hypertensive urgency; G47.33 Obstructive sleep apnea (adult) (pediatric); E83.42 Hypomagnesemia; Z86.73 Personal history of transient ischemic attack (TIA), and cerebral infarction without residual deficits; Z85.46 Personal history of malignant neoplasm of prostate; Z85.820 Personal history of malignant melanoma of skin; Z87.891 Personal history of nicotine dependence
CPT/HCPCS: 74022; 74177; 74183; 80053; 80061; 82150; 83036; 83615; 83690; 83735; 84478; 85025; 96361; 96374; 96375; 99285; A9575; Q9967

== ENCOUNTER → 2024-03-17 08:30 | Outpatient (REF) | payer MEDICARE, SELFPAY | LOC: HWRAD 08:30 | PROVIDERS: ATTENDING PHYSICIAN Family Medicine | DX: M20.5X2 Other deformities of toe(s) (acquired), left foot (principal) | CPT/HCPCS: 73630 ==

== ENCOUNTER → 2024-11-20 07:52 | Outpatient (REF) | payer MEDICARE, SELFPAY | LOC: HWRAD 07:52 | PROVIDERS: ATTENDING PHYSICIAN Family Medicine | DX: S22.41XA Multiple fractures of ribs, right side, initial encounter for closed fracture (principal) | CPT/HCPCS: 71101 ==

== ENCOUNTER → 2025-01-17 08:53 | Outpatient (REF) | payer MEDICARE, SELFPAY | LOC: HWRAD 08:53 | PROVIDERS: ATTENDING PHYSICIAN Family Medicine | DX: M25.511 Pain in right shoulder (principal) | CPT/HCPCS: 73030 ==